=== PATIENT | female | born 1985 | race African-American/Black ===

== ENCOUNTER → 2019-04-02 | Outpatient (CLI) | payer OTHER ==
--- NOTE | 2019-04-02 10:48 | PCVCIMAG ---
APPROVED REPORT Study performed: 04/02/2019 09:42:58 Exam: Stress Echocardiogram Indication: Palpitations , Hyperlipidemia Patient Location: Echo lab Stress Nurse: Yessica Mathew RN Status: routine Ht: 5 ft 2 in HR: 72 bpm BP: 120/100 mmHg Rhythm: NSR Medical History Medical History: Hyperlipidemia, palpitations Procedure The patient underwent an Exercise Stress Test using the Bebeto Protocol. Blood pressure, heart rate, and EKG were monitored. An Echocardiogram was performed by slot technician in four stages in quad fashion. At peak stress, four selected images were obtained and placed side by side with resting images for comparison. Stress Test Details Stress Test: Exercise stress testing was performed using a Bebeto protocol. HR Resting HR: 72 bpmMax Heart Rate (APMHR): 187 bpm Max HR Achieved: 169 bpmTarget HR (85% APMHR): 158 bpm % of APMHR: 90 Recovery HR: 97 bpm HR response to stress: Normal HR response to stress BP Resting BP: 120/100 mmHg Max BP: 150/82 mmHg Recovery BP: 124/70 mmHg BP response to stress: Normal blood pressure response to stress. ECG Resting ECG: Sinus Rhythm Stress ECG: Sinus Rhythm Arrhythmia: VPC's Recovery ECG: Sinus Rhythm Recovery Arrhythmia: VPC Clinical Reason for Termination: Maximal effort Exercise duration: 10 min 16 sec Highest Stage Achieved: Stage 3: 3.4 mph at 14% grade. Exercise capacity: 13.40 METs Overall Exercise Capacity for Age: Normal Stress ECG Conclusion 1. subjectively negative for ischemia 2. electrocardiographically negative for ischemia 3. occassional exercise induced ventricular couplets noted 4. adequate functional capacity Pre-Stress Echo The resting Echocardiogram showed normal left ventricular contractility with an estimated Ejection Fraction of about 55-60%. Normal wall motion in all segments on baseline images. Post-Stress Echo The stress Echocardiogram showed normal left ventricular contractility with an estimated Ejection Fraction of about 60-65%. Normal augmentation of wall motion in all segments on post stress images. Clinical No clinical or ECG evidence for ischemia. Conclusion Clinical Response: Non-ischemic Exercise Capacity: Average Stress ECG Response: Non-ischemic Stress Echo Images: Non-ischemic The left ventricle is normal in size and wall thickness in both the rest and stress images. 1. low risk study Other Information Study Quality: Good <Conclusion> The left ventricle is normal in size and wall thickness in both the rest and stress images. 1. low risk study
== END | disposition home or self-care (01) ==
LOC: PCVCIMAG 08:40
PROVIDERS: ATTEND Internal Medicine
DX: R00.2 Palpitations (principal); E78.5 Hyperlipidemia, unspecified; Z87.898 Personal history of other specified conditions
CPT/HCPCS: 93325; 93351